=== PATIENT | male | born 1975 | race Caucasian/White ===

== ENCOUNTER → 2016-12-05 | Outpatient (CLI) | payer BC, OTHER | END | disposition disaster alternative care site (69) | LOC: GAIR 16:21 | DX: T79.4XXA Traumatic shock, initial encounter (principal); S82.91XA Unspecified fracture of right lower leg, initial encounter for closed fracture; I95.9 Hypotension, unspecified; S31.114A Laceration without foreign body of abdominal wall, left lower quadrant without penetration into peritoneal cavity, initial encounter; M21.931 Unspecified acquired deformity of right forearm; M21.922 Unspecified acquired deformity of left upper arm; M25.472 Effusion, left ankle; V29.9XXA Motorcycle rider (driver) (passenger) injured in unspecified traffic accident, initial encounter | CPT/HCPCS: A0422; A0431; A0436; J2250; J3010 ==